=== PATIENT | male | born 1995 | race Two or more races ===

== ENCOUNTER 2025-05-05 16:58 | Emergency (ER) | payer OTHER ==
[~2025-05-05] VITALS: Ht 172.7 cm; Wt 64.0 kg
[2025-05-05 16:59] VITALS: O2SAT 98
[2025-05-05 17:06] VITALS: TEMP 36.9; O2SAT 100
[2025-05-05 18:15] VITALS: BP 129/86; PULSE 63; RESP 14; TEMP 98.5
[2025-05-05] MEDS: KETOROLAC 15MG/ML VIAL IM ONE (18:15)
[2025-05-05] MEDS: ACETAMINOPHEN 500MG TABLET PO ONE (18:15)
[2025-05-05] MEDS ORDERED: AMOX1TAB16 MT (18:38)
== END 2025-05-05 18:54 | disposition home or self-care (01) ==
LOC: ER 16:58
DX: K02.9 Dental caries, unspecified (principal)
CPT/HCPCS: 99283; 96372; J1885